=== PATIENT | male | born 1990 | race Caucasian/White ===

== ENCOUNTER 2024-04-23 14:07 | Emergency (ER) | payer OTHER ==
[~2024-04-23] VITALS: Ht 172.7 cm; Wt 72.7 kg
[2024-04-23 14:14] VITALS: BP 112/60; PULSE 58; RESP 16; TEMP 97.9; O2SAT 99
== END 2024-04-23 16:11 | disposition left against medical advice (07) ==
LOC: EMS 14:07
DX: S61.552A Open bite of left wrist, initial encounter (principal); Z53.21 Procedure and treatment not carried out due to patient leaving prior to being seen by health care provider; W54.0XXA Bitten by dog, initial encounter; Y93.89 Activity, other specified; Y92.89 Other specified places as the place of occurrence of the external cause; Y99.8 Other external cause status